=== PATIENT | male | born 1995 | race Caucasian/White ===

== ENCOUNTER 2020-11-23 15:40 | Emergency (ER) | payer BC, SELFPAY ==
[2020-11-23 15:51] VITALS: BP 118/69; PULSE 78; RESP 16; TEMP 36.8; O2SAT 100
--- NOTE | 2020-11-23 16:31 | ED.GENADULT ---
HPI - General Adult General Chief complaint: Ear Stated complaint: Ear infection Time Seen by Provider: 11/23/20 16:31 Source: patient and RN notes reviewed Mode of arrival: ambulatory Limitations: no limitations History of Present Illness HPI narrative: 25-year-old male presents with complaints of right otalgia for the past 7 days. ?Kwasi reports increasing RT ear pain and tinnitus for the past 2-3 days. ?OTC ear drops without relief. ?Denies drainage or decreased hearing. ?Denies injury to ear. ?Denies rhinorrhea and nasal congestion. Denies coughing. ?No high fevers or chills. ?Denies nausea, vomiting, and dizziness. ?Remains active. ?The patient reports he has not been diagnosed with COVID-19. ?The patient reports he is not waiting for the results of a COVID-19 lab test. ?The patient reports he does not have a new or worsening cough. The patient reports he does not have any sore throat, loss of taste or smell, abdominal pain, and diarrhea. Denies recent traveling. ?Denies concerns for COVID-19 or exposures. ?At this time, the patient is not suspected of having COVID-19. Some parts of this dictation were generated by voice recognition software and may contain typographical and/or grammatical inaccuracies. Related Data Allergies Allergy/AdvReac Type Severity Reaction Status Date / Time No Known Allergies Allergy Verified 11/23/20 15:57 Review of Systems Review of Systems: Narrative: CONSTITUTIONAL: Denies fever, chills, sweats. EYES: Denies visual changes, redness, discharge. ENT: Denies sore throat, ear drainage, decreased hearing, rhinorrhea, congestion. Complaints of RT otalgia, tinnitus. CARDIOVASCULAR: Denies chest pain, palpitations, edema. RESPIRATORY: Denies dyspnea, wheezing, cough. GASTROINTESTINAL: Denies abdominal pain, nausea, vomiting, diarrhea. SKIN: Denies rash or itching. MUSCULOSKELETAL: Denies acute back pain, joint pain, or myalgia. NEUROLOGIC: Denies numbness or focal weakness. PSYCHIATRIC: Denies anxiety or depression. All systems reviewed & are unremarkable except as noted in HPI and below. [facility] Past Medical History Medical History Smoker cigars Surgical History Surgical History (Updated 11/23/20 @ 16:43 by MAGED Gay) No significant past surgical history Family History Family History (Updated 11/23/20 @ 16:44 by MAGED Gay) Father Alive and well Mother Alive and well Social History Social History (Updated 11/23/20 @ 16:45 by MAGED Gay) Smoking status: Current some day smoker Tobacco type: cigars Second hand tobacco smoke exposure: No Alcohol intake: current Substance use: never Substance use type: does not use Living arrangements: with family Occupation/Education: occupation Gender identity (if verbalized by the patient): Male Comments At time of signature, I have reviewed and agree with the nursing past medical, surgical, social, and family history. Please see the nursing chart for further information. There is no relevant family history pertinent to the presenting complaint. Exam Narrative: Exam Narrative: GENERAL: This is a well-nourished, well-developed patient, in no apparent distress. Talks in full sentences and ambulates with steady gait without dyspnea HEAD: Normocephalic, atraumatic. EYES: PERRL. Sclera clear/white. Vision is grossly intact. EARS: Pinna is normal shape and contour. Clear external auditory canals. LT TM pearly ortiz with good cone of light, no erythema or suppuration. RT TM moderate erythema and bulging, no drainage or suppuration. No tenderness with manipulation. No gross hearing deficit. NOSE: External nose normal with no obvious nasal discharge, nares with moderate redness and enlarged turbinates, no rhinorrhea. THROAT: Mucous membranes moist, posterior pharynx clear. NECK: Neck supple, non-tender without lymphadenopathy, masses, or thyromegaly. CARDIOVASCULAR: Regular rate and rhythm wit
== END 2020-11-23 16:52 | disposition home or self-care (01) ==
PROVIDERS: Emergency Provider Nurse Practitioner Family
DX: H66.91 Otitis media, unspecified, right ear (principal); F17.290 Nicotine dependence, other tobacco product, uncomplicated
CPT/HCPCS: 99203; G0463